=== PATIENT | male | born 1995 | race African-American/Black ===

== ENCOUNTER 2024-02-14 02:08 | Emergency (ER) | payer OTHER, SELFPAY ==
[2024-02-14 02:12] VITALS: BP 144/112
--- NOTE | 2024-02-14 02:39 | EDRN ---
Pt. presents w/ c/o nausea/vomiting and 'can't keep anything down' for 2 1/2 hours. Pt. denies abdominal pain.
--- NOTE | 2024-02-14 02:54 | ED.GENMED ---
History of Present Illness
General
Chief Complaint: Abdominal Symptoms
Source: patient
Exam Limitations: none
Time Seen by Provider: 02/14/24 02:46
Nursing documentation reviewed up to this point in time: agreed with
History of Present Illness
History of Present Illness:
Patient presents to ED secondary to sudden onset of multiple episodes of vomiting and diarrhea starting last night. Denies fever or chills. Denies abdominal pain. Denies chest pain or shortness of breath. Denies dizziness. Denies weakness.
Denies sick contact. Denies recent travel.
Review of Systems
Review of Systems
Allergies reviewed?: Yes
All Other Systems: ROS reviewed and negative except as documented in HPI and ROS
Constitutional: Reports no symptoms
Respiratory: Reports no symptoms
Cardiac: Reports no symptoms
ABD/GI: Reports vomiting and diarrhea; Denies abdominal pain
Musculoskeletal: Reports no symptoms
Skin: Reports no symptoms
Neurological: Reports no symptoms
Phy Exam
Physical Exam
Physical Exam:
Physical Exam
General: mild distress, not acutely ill. afebrile
Head: nc/at. eomi
Neck: supple. no meningeal signs.
Heart: s1/s2 regular rate and rhythm, no murmur. equal radial pulses.
Lungs: no acute respiratory distress. clear bilaterally
Abdomen: normal bowel sounds. not tender. no distention
Neuro: alert and oriented. no focal neurological deficits
Skin: no rash
Psychiatric: well kept. interactive and cooperative
Extremities: no edema. no calf tenderness.
Course
Orders/Labs/Results
Orders:
Orders
02/14/24 02:53
0.9% Sodium Chloride 1000 ml [Nss] 1,000 ml IV BOLUS
Ondansetron Injectable [Zofran] 4 mg IV NOW STA
Pantoprazole [Protonix IV] 40 mg IV NOW STA
02/14/24 02:53
02/14/24 02:53
Vital Signs
Initial and Last Documented VS:
Initial Vital Signs
Temp Pulse Resp BP Pulse Ox
98.2 F 100 26 144/112 100
02/14/24 02:12 02/14/24 02:12 02/14/24 02:12 02/14/24 02:12 02/14/24 02:12
Last Documented Vital Signs
Temp Pulse Resp BP Pulse Ox
98.2 F 100 26 144/112 100
02/14/24 02:12 02/14/24 02:12 02/14/24 02:12 02/14/24 02:12 02/14/24 02:12
MDM/Problems Addressed
MDM/Problems Addressed:
History and exam consistent with likely viral gastroenteritis. Otherwise, pt is afebrile, hemodynamically stable, and reports improvement in symptoms after treatment. Pt will be discharged home in stable condition, with recommendation to continue
hydration at home, along with PCP f/u as outpatient, as needed.
*Critical Care Note
Total Time (30-74mins, 75-104mins- exclusive of procedures): Not Applicable
ED Attending Note
-
Portions of this chart may have been created with voice recognition software.� Occasional wrong word or��sound alike� substitutions may have occurred due to the inherent limitations of voice recognition software.
Discharge Plan
Departure
Prescriptions:
No Action
No Current Medications
Referrals:
NONE,* [Family Provider] -
Interventions
Interventions:
*Risk Screen - Suicide Last Done: 02/14/24 02:12
*Neglect/Abuse Screening Last Done: 02/14/24 02:12
Discharge Date and Time
Print Language: THAI
== END 2024-02-14 03:00 | disposition other institution (70) ==
LOC: EMR 02:08
PROVIDERS: EMERGENCY PHYSICIAN Emergency Medicine
DX: R11.2 Nausea with vomiting, unspecified (principal); R19.7 Diarrhea, unspecified
CPT/HCPCS: 99282